=== PATIENT | male | born 1970 | race Caucasian/White ===

== ENCOUNTER 2019-09-27 13:18 | Emergency (ER) | payer OTHER ==
[2019-09-27 13:27] VITALS: BP 125/73
[2019-09-27] MEDS ORDERED: DEXAMETHASONE SOD PHOS INJ 10 MG/1 ML VIAL IM ONE (13:38)
--- NOTE | 2019-09-27 13:45 | ER Document Report ---
HPI - HPI Patient complains to provider of: Poison yoana exposure Time Seen by Provider: 09/27/19 13:33 Onset: Other Onset/Duration: Persistent Quality of pain: No pain Pain Level: Denies Context: This 49-year-old male presents the emergency department with complaints of poison yoana exposure. He reports he was pulling down some poison yoana on a pool shed on Sunday. On he woke up with a rash itching. He has been taking Benadryl without relief of symptoms. He denies trouble breathing. Denies fever vomiting diarrhea. Reports in the past he has been exposed to just burning poison yoana and had the rash. Associated Symptoms: None Exacerbated by: Denies Relieved by: Denies Similar symptoms previously: No Recently seen / treated by doctor: No - REPRODUCTIVE Reproductive: DENIES: : Past Medical History - General Information source: Patient - Social History Smoking Status: Current Every Day Smoker Cigarette use (# per day): Yes Frequency of alcohol use: None Drug Abuse: None Family History: None Patient has suicidal ideation: No Patient has homicidal ideation: No Pulmonary Medical History: Reports: Hx Asthma - seasonal Psychiatric Medical History: Reports: Hx Bipolar Disorder Past Surgical History: Reports: Hx Testicular Surgery Vertical Provider Document - CONSTITUTIONAL Agree With Documented VS: Yes Exam Limitations: No Limitations General Appearance: WD/WN, No Apparent Distress - INFECTION CONTROL TRAVEL OUTSIDE OF THE [place] IN LAST 30 DAYS: No - HEENT HEENT: Atraumatic, Normocephalic, PERRLA. negative: Conjuctival Injection, Pharyngeal Erythema - NECK Neck: Normal Inspection, Supple. negative: Lymphadenopathy-Left, Lymphadenopathy-Right - RESPIRATORY Respiratory: Breath Sounds Normal, No Respiratory Distress - CARDIOVASCULAR Cardiovascular: Regular Rate, Regular Rhythm - MUSCULOSKELETAL/EXTREMETIES Musculoskeletal/Extremeties: MAEW, FROM, Non-Tender - NEURO Level of Consciousness: Awake, Alert, Appropriate Motor/Sensory: No Motor Deficit - DERM Integumentary: Warm, Dry, Rash - facial erythema and swelling to most of face, concentrated around left eye, good airway, clear voice, Linear streaks noted to bilateral forearms Course - Re-evaluation Re-evalutation: 09/27/19 13:45 49-year-old male presents emergency department with reports that he was exposed to poison yoana on Sunday. He reports he was pulling down the poison yoana on a pool shed. He reports on he started experiencing the rash to his face. He also has linear streaks and rash to his forearms. Reports this happened to him before when he was just round burning poison yoana. Patient denies cough difficulty breathing, no complaints of fever vomiting diarrhea. Patient reports is been taking Benadryl without relief of symptoms. Patient was treated with Keflex and steroid. He was also instructed on Boro solution or Caladryl. He was instructed to avoid itching. He was also instructed to return here for worsening symptoms trouble breathing he verbalized understanding to all instructions. Dictation of this chart was performed using voice recognition software; therefore, there may be some unintended grammatical errors. - Vital Signs Vital signs: Temp Pulse Resp BP Pulse Ox 97.7 F 58 L 16 125/73 99 09/27/19 13:25 09/27/19 13:25 09/27/19 13:25 09/27/19 13:25 09/27/19 13:25 Discharge - Discharge Clinical Impression: Poison yoana dermatitis Condition: Stable Disposition: HOME, SELF-CARE Instructions: Cephalexin ([facility]), Use of Diphenhydramine, Poison Yoana ([facility]), Steroid Medication Injection Additional Instructions: *You have been treated for poison yoana dermatitis *Take medication as prescribed *Monitor your skin for signs of of infection such as increased redness swelling warmth to the sites *Avoid itching take Benadryl as indicated *Follow up with a primary care provider within 1 week for recheck *Return to ED for signs of infection, worsening condition, changes, needs Prescriptions: Cephalexin Monohydrate [Keflex 500 mg Capsule] 500 mg PO QID #20 capsule Forms: Smoking Cessation Education
== END 2019-09-27 14:01 | disposition home or self-care (01) ==
LOC: ER 13:18
DX: L23.7 Allergic contact dermatitis due to plants, except food (principal); F17.210 Nicotine dependence, cigarettes, uncomplicated
CPT/HCPCS: 99282; 96374; J1100

== ENCOUNTER 2020-10-04 15:02 | Emergency (ER) | payer OTHER ==
--- NOTE | 2020-10-04 15:50 | EKG REPORT ---
SEVERITY:- OTHERWISE NORMAL ECG - SINUS BRADYCARDIA : Confirmed by: Kristin Danielson MD 04-Oct-2020 15:48:50
--- NOTE | 2020-10-04 16:11 | ER Document Report ---
ED Medical Screen (RME) - General Chief Complaint: Chest Pain Stated Complaint: CHEST PAIN Time Seen by Provider: 10/04/20 16:06 Primary Care Provider: ROCIO,ANA [Primary Care Provider] - Follow up as needed Mode of Arrival: Ambulatory Information source: Patient Notes: HPI; 50-year-old male with no previous medical problems presents to the emergency room complaining of sudden onset of dizziness with blurred vision that started last evening. States it lasted for approximately 30 minutes to an hour.. Went away without intervention. Denies any head trauma or head injury. He also developed midsternal sharp stabbing chest pain that has been persistent since last night. Did not take any medications for his symptoms. No cardiac history. Also complains of generalized weakness. No medications for symptoms. PE: Alert and oriented x3. Lungs: Clear to auscultation without rales, rhonchi, wheezes. Heart: Bradycardic without murmurs, rubs, gallops. Patient's blood pressure was noted to be 125/47 which he states is not his normal blood pressure. I have greeted and performed a rapid initial assessment of this patient. A comprehensive ED assessment and evaluation of the patient, analysis of test results and completion of the medical decision making process will be conducted by additional ED providers. I have specifically instructed the patient or family members with the patient to immediately return to any nursing staff should anything change in the patient's condition or with their chief complaint. TRAVEL OUTSIDE OF THE [place] IN LAST 30 DAYS: No - Related Data Allergies/Adverse Reactions: lithium Allergy (Verified 09/27/19 13:35) Past Medical History Pulmonary Medical History: Reports: Hx Asthma - seasonal Psychiatric Medical History: Reports: Hx Bipolar Disorder Past Surgical History: Reports: Hx Testicular Surgery Physical Exam - Vital signs Vitals: Temp Pulse Resp BP Pulse Ox 97.8 F 56 L 16 123/47 L 97 10/04/20 15:57 10/04/20 15:57 10/04/20 15:57 10/04/20 15:57 10/04/20 15:57 Course - Vital Signs Vital signs: Temp Pulse Resp BP Pulse Ox 97.8 F 56 L 16 123/47 L 97 10/04/20 15:57 10/04/20 15:57 10/04/20 15:57 10/04/20 15:57 10/04/20 15:57 Doctor's Discharge - Discharge Referrals: [facility] [[facility]] - Follow up as needed
[2020-10-04] MEDS ORDERED: RINGERS SOLUTION,LACTATED 1,000 ML IV ONE (16:17)
--- NOTE | 2020-10-04 16:54 | RADIOLOGY REPORT (SQ) ---
EXAM DESCRIPTION: CT HEAD WITHOUT IMAGES COMPLETED DATE/TIME: 10/04/2020 4:38 pm REASON FOR STUDY: dizziness COMPARISON: None. TECHNIQUE: Axial images acquired through the brain without intravenous contrast. Images reviewed wi th bone, brain and subdural windows. Additional sagittal and coronal reconstructions were generated. Images stored on PACS. All CT scanners at this facility use dose modulation, iterative reconstruction, and/or weight based d osing when appropriate to reduce radiation dose to as low as reasonably achievable (ALARA). [facility]: Dose Right [facility]: CareDose [facility]: Dose Right [facility]: Teradose 4D [facility]: [employer] RADIATION DOSE: CT Rad equipment meets quality standard of care and radiation dose reduction techniq ues were employed. CTDIvol: 53.2 mGy. DLP: 1070 mGy-cm. LIMITATIONS: None. FINDINGS: VENTRICLES: Normal size and contour. The cisterns are patent. CEREBRUM: No masses. No hemorrhage. No midline shift. No evidence for acute infarction. Normal gra y/white matter differentiation. No areas of low density in the white matter. CEREBELLUM: No masses. No hemorrhage. No alteration of density. No evidence for acute infarction. EXTRAAXIAL SPACES: No fluid collections. No masses. ORBITS AND GLOBE: No intra- or extraconal masses. Normal contour of globe without masses. CALVARIUM: No fracture. PARANASAL SINUSES: No fluid or mucosal thickening. SOFT TISSUES: No mass or hematoma. OTHER: Pneumatization of the anterior clinoid process on the right, normal anatomic variant. IMPRESSION: 1. No acute intracranial abnormality. EVIDENCE OF ACUTE STROKE: NO COMMENT: Quality ID # [id number]: Final reports with documentation of one or more dose reduction techniques (e.g., Automated exposure control, adjustment of the mA and/or kV according to patient size, use of iterative reconstruction technique) TECHNICAL DOCUMENTATION: JOB ID: [id number] 2010 [employer]- All Rights Reserved Reading location - IP/workstation name: [email or web address]
--- NOTE | 2020-10-04 17:07 | RADIOLOGY REPORT (SQ) ---
EXAM DESCRIPTION: CHEST 2 VIEWS IMAGES COMPLETED DATE/TIME: 10/04/2020 4:56 pm REASON FOR STUDY: chest pain COMPARISON: None. EXAM PARAMETERS: NUMBER OF VIEWS: two views TECHNIQUE: Digital Frontal and Lateral radiographic views of the chest acquired. RADIATION DOSE: NA LIMITATIONS: none FINDINGS: LUNGS AND PLEURA: No opacities, masses or pneumothorax. No pleural effusion. MEDIASTINUM AND HILAR STRUCTURES: No masses or contour abnormalities. HEART AND VASCULAR STRUCTURES: Heart normal size. No evidence for failure. BONES: No acute findings. HARDWARE: None in the chest. OTHER: Small opaque density overlies the right lower chest wall. IMPRESSION: 1. NO ACUTE RADIOGRAPHIC FINDING IN THE CHEST. TECHNICAL DOCUMENTATION: JOB ID: [id number] 2010 [employer]- All Rights Reserved Reading location - IP/workstation name: [email or web address]
[2020-10-04 17:22] LABS: ABSOLUTE BASOPHILS # (AUTO) 0.1 10^3/uL (0.0-0.2); ABSOLUTE EOSINOPHILS # (AUTO) 0.1 10^3/uL (0.0-0.6); ABSOLUTE LYMPHOCYTES (AUTO) 2.3 10^3/uL (0.5-4.7); ABSOLUTE MONOCYTES (AUTO) 0.5 10^3/uL (0.1-1.4); ABSOLUTE NEUT (AUTO) 5.5 10^3/uL (1.7-8.2); BASOPHILS % (AUTO) 0.8 % (0-2); EOSINOPHILS % (AUTO) 1.4 % (0-6); HEMATOCRIT 41.4 % (37.9-51.0); HEMOGLOBIN 14.5 g/dL (13.5-17.0); LYMPHOCYTES % (AUTO) 27.4 % (13-45); MEAN CORPUSCULAR HEMOGLOBIN 30.1 pg (27.0-33.4); MEAN CORPUSCULAR VOLUME 86 fl (80-97); MONOCYTES % (AUTO) 6.1 % (3-13); PLATELET COUNT 191 10^3/uL (150-450); RED BLOOD COUNT 4.81 10^6/uL (4.35-5.55); RED CELL DISTRIBUTION WIDTH 13.2 % (11.5-14.0); SEGMENTED NEUTROPHILS % (AUTO) 64.3 % (42-78); TOTAL CELLS COUNTED % (AUTO) 100 %; WHITE BLOOD COUNT 8.5 10^3/uL (4.0-10.5)
[2020-10-04 17:51] LABS: ALBUMIN 4.4 g/dL (3.5-5.0); ALKALINE PHOSPHATASE 110 U/L (38-126); ANION GAP 5 (5-19); ASPARTATE AMINO TRANSFERASE 25 U/L (17-59); BILIRUBIN,DIRECT 0.1 mg/dL (0.0-0.4); BILIRUBIN,TOTAL 0.4 mg/dL (0.2-1.3); BLOOD UREA NITROGEN 11 mg/dL (7-20); CALCIUM 9.9 mg/dL (8.4-10.2); CARBON DIOXIDE 30 mmol/L (22-30); CHLORIDE 103 mmol/L (98-107); CREATINE KINASE 71 U/L (55-170); GLUCOSE 98 mg/dL (75-110); POTASSIUM 4.8 mmol/L (3.6-5.0); TOTAL PROTEIN 7.1 g/dL (6.3-8.2)
[2020-10-04 18:02] LABS: CREATINE KINASE MB 0.24 ng/mL (<4.55)
[2020-10-04 18:11] LABS: TROPONIN I < 0.012 ng/mL
[2020-10-04 20:19] VITALS: BP 115/57
== END 2020-10-04 23:52 | disposition left against medical advice (07) ==
LOC: ER 15:02
DX: R07.9 Chest pain, unspecified (principal); R42 Dizziness and giddiness; H53.8 Other visual disturbances
CPT/HCPCS: 36415; 70450; 71046; 80053; 82550; 82553; 84484; 85025; 93005; 93010; 99281